=== PATIENT | female | born 1980 | race American Indian/Alaskan Native ===

== ENCOUNTER 2017-06-10 16:46 | Emergency (ER) | payer BC ==
[2017-06-10 18:27] LABS: Basophils % (Auto) 0.3 % (0.0-1.8); Eosinophils # (Auto) 0.6 K/mm3 (0.0-0.4); Hematocrit 41.7 % (30.3-42.9); Hemoglobin 13.7 gm/dl (10.1-14.3); Lymphocytes # (Auto) 2.9 K/mm3 (1.2-5.4); Lymphocytes % (Auto) 25.6 % (13.4-35.0); Mean Corpuscular HGB Conc 33 % (30-34); Mean Corpuscular Hemoglobin 29 pg (28-32); Mean Corpuscular Volume 88 fl (79-97); Monocytes # (Auto) 0.7 K/mm3 (0.0-0.8); Platelet Count 231 K/mm3 (140-440); Red Blood Count 4.74 M/mm3 (3.65-5.03); Red Cell Distribution Width 12.5 % (13.2-15.2)
[2017-06-10 18:42] LABS: BUN/Creatinine Ratio 8; Blood Urea Nitrogen 4 mg/dL (7-17)
[2017-06-10 18:43] LABS: Alanine Aminotransferase 59 units/L (7-56); Albumin 4.2 g/dL (3.9-5); Hemolysis Index 4
[2017-06-10] MEDS ORDERED: TYLENOL #3 PO ONE (20:31)
[2017-06-10] MEDS ORDERED: DUONEB *Not for PRN Use IH ONE (20:31)
--- NOTE | 2017-06-10 20:52 | Emergency Department Report ---
- General Chief Complaint: Upper Respiratory Infection Stated Complaint: BURTON/RIB PAIN Time Seen by Provider: 06/10/17 20:23 Source: patient Mode of arrival: Ambulatory Limitations: No Limitations - History of Present Illness Initial Comments: 36-year-old -[place] female comes in today for having 3 days of flulike symptoms. Patient reports that she is having difficulty bringing up the phlegm. She admits to decreased appetite Raynaud's eyes running sneezing wheezing she denies any sore throat or ear pain. She said on she vomited 1 and had chills. Patient reports she has a past medical history of asthma and has been using her inhaler. MD Complaint: cough, rhinorrhea, nasal congestion -: days(s) (3) Severity: moderate Severity scale (0 -10): 8 Consistency: constant Improves With: nothing Worsens With: activity, deep breaths Context: sick contacts Associated Symptoms: rhinorrhea, nasal congestion, cough, shortness of breath, vomiting ( time 1 on ). denies: sore throat Treatments Prior to Arrival: none - Related Data Previous Rx's Medication Instructions Recorded Last Taken Type Azithromycin [Zithromax] 500 mg PO QDAY #3 tablet 09/04/13 Unknown Rx Butalb/Acetamin/Caff 50-325-40 1 each PO Q4H PRN #20 tablet 07/12/14 Unknown Rx [Fioricet] Ibuprofen [Motrin 800 MG tab] 800 mg PO TID PRN #30 tablet 07/12/14 Unknown Rx Ondansetron [Zofran Odt] 4 mg PO Q6H PRN #20 tab.rapdis 07/12/14 Unknown Rx Cetirizine HCl [ZyrTEC] 10 mg PO QDAY #30 capsule 06/10/17 Unknown Rx Prednisone [predniSONE 10 mg 10 mg PO .TAPER #1 tab.ds.pk 06/10/17 Unknown Rx (6-Day Pack, 21 Tabs)] Allergies Allergy/AdvReac Type Severity Reaction Status Date / Time No Known Allergies Allergy Unverified 09/04/13 08:35 ED Review of Systems ROS: Stated complaint: BURTON/RIB PAIN Other details as noted in HPI Constitutional: denies: chills, fever Eyes: denies: eye pain, eye discharge, vision change ENT: congestion Respiratory: cough, shortness of breath, wheezing Cardiovascular: dyspnea on exertion Endocrine: no symptoms reported Gastrointestinal: denies: abdominal pain, nausea, diarrhea Genitourinary: denies: urgency, dysuria, discharge Musculoskeletal: denies: back pain, joint swelling, arthralgia Skin: denies: rash, lesions Neurological: denies: headache, weakness, paresthesias Psychiatric: denies: anxiety, depression Hematological/Lymphatic: denies: easy bleeding, easy bruising ED Past Medical Hx - Past Medical History Hx Asthma: Yes - Surgical History Additional Surgical History: tubal ligation - Social History Smoking Status: Never Smoker Substance Use Type: None - Medications Home Medications: Home Medications Medication Instructions Recorded Confirmed Last Taken Type Azithromycin [Zithromax] 500 mg PO QDAY #3 tablet 09/04/13 Unknown Rx Butalb/Acetamin/Caff 50-325-40 1 each PO Q4H PRN #20 tablet 07/12/14 Unknown Rx [Fioricet] Ibuprofen [Motrin 800 MG tab] 800 mg PO TID PRN #30 tablet 07/12/14 Unknown Rx Ondansetron [Zofran Odt] 4 mg PO Q6H PRN #20 tab.rapdis 07/12/14 Unknown Rx Cetirizine HCl [ZyrTEC] 10 mg PO QDAY #30 capsule 06/10/17 Unknown Rx Prednisone [predniSONE 10 mg 10 mg PO .TAPER #1 tab.ds.pk 06/10/17 Unknown Rx (6-Day Pack, 21 Tabs)] ED Physical Exam - General Limitations: No Limitations General appearance: alert, in no apparent distress - Head Head exam: Present: atraumatic, normocephalic - Eye Eye exam: Present: normal appearance - ENT ENT exam: Present: mucous membranes moist - Neck Neck exam: Present: normal inspection - Respiratory Respiratory exam: Present: wheezes, prolonged expiratory - Cardiovascular Cardiovascular Exam: Present: normal rhythm, tachycardia. Absent: systolic murmur, diastolic murmur, rubs, gallop - GI/Abdominal GI/Abdominal exam: Present: soft, normal bowel sounds - Extremities Exam Extremities exam: Present: normal inspection - Back Exam Back exam: Present: normal inspection - Neurological Exam Neurological exam: Present: alert, oriented X3 - Psychiatric Psychiatric exam: Present: normal affect, normal mood - Skin Skin exam: Present: warm, dry, intact, normal color. Absent: rash ED Course Vital Signs 06/10/17 17:18 Temperature 98.8 F Pulse Rate 112 H Respiratory 22 Rate Blood Pressure 148/94 Blood Pressure 148/94 [Right] O2 Sat by Pulse 97 Oximetry ED Medical Decision Making - Lab Data Result diagrams: 06/10/17 18:03 06/10/17 18:03 - Radiology Data Radiology results: report reviewed, image reviewed Chest x-ray no cardiopulmonary abnormalities - Medical Decision Making Patient has been evaluated by this provider fast track. Orders have been placed for DuoNeb and Solu-Medrol 125 mg IM, Tylenol 3. Chest x-rays in order waiting for results to be read. Critical care attestation.: If time is entered above; I have spent that time in minutes in the direct care of this critically ill patient, excluding procedure time. ED Disposition Clinical Impression: Asthma Qualifiers: Asthma severity: unspecified severity Asthma persistence: unspecified Asthma complication type: with acute exacerbation Qualified Code(s): J45.901 - Unspecified asthma with (acute) exacerbation Disposition: DC-01 TO HOME OR SELFCARE Is pt being admited?: No Does the pt Need Aspirin: No Condition: Stable Instructions: Asthma (ED) Additional Instructions: Please take medications as prescribed. Usual inhaler as needed. Follow-up with primary care provider if symptoms persist or gets worse. Prescriptions: Cetirizine HCl [ZyrTEC] 10 mg PO QDAY #30 capsule Prednisone [predniSONE 10 mg (6-Day Pack, 21 Tabs)] 10 mg PO .TAPER #1 tab.ds.pk Referrals: JAYME SULLIVAN MD [Staff Physician] - 3-5 Days Forms: Work/School Release Form(ED)
--- NOTE | 2017-06-10 22:05 | XRay Report ---
FINAL REPORT PROCEDURE: XR CHEST 1V AP TECHNIQUE: Chest radiograph anteroposterior view. CPT 77423 HISTORY: Pneumonia COMPARISON: Prior chest x-ray 06/28/2015 FINDINGS: Heart: Normal. Mediastinum/Vessels: Normal. Lungs/Pleural space: Clear. Patient has taken a deeper breath compared to the prior study.. Bony thorax: No acute osseous abnormality. Life support devices: None. IMPRESSION: No acute cardiopulmonary abnormality.
[2017-06-10 22:42] VITALS: BP 142/90
== END 2017-06-10 22:42 | disposition home or self-care (01) ==
LOC: ED 16:46
DX: J45.909 Unspecified asthma, uncomplicated (principal)
CPT/HCPCS: 36415; 71045; 80053; 85025; 96372; 99284; J2930

== ENCOUNTER 2018-06-12 22:00 | Inpatient (IN) | payer BC ==
[2018-06-12] MEDS ORDERED: PROVENTIL IH ONE (22:33)
[2018-06-12] MEDS ORDERED: DUONEB *Not for PRN Use IH ONE (22:33)
[2018-06-12] MEDS ORDERED: NACL 0.9% 500 ML 500 ML IV ONE (23:01)
[2018-06-12 23:31] LABS: Basophils # (Auto) 0.2 K/mm3 (0.0-0.1); Basophils % (Auto) 1.5 % (0.0-1.8); Eosinophils # (Auto) 0.1 K/mm3 (0.0-0.4); Eosinophils % (Auto) 0.7 % (0.0-4.3); Hematocrit 37.2 % (30.3-42.9); Hemoglobin 12.8 gm/dl (10.1-14.3); Lymphocytes % (Auto) 14.4 % (13.4-35.0); Mean Corpuscular HGB Conc 34 % (30-34); Mean Corpuscular Volume 87 fl (79-97); Monocytes # (Auto) 0.9 K/mm3 (0.0-0.8); Monocytes % (Auto) 6.2 % (0.0-7.3); Platelet Count 267 K/mm3 (140-440); Red Blood Count 4.29 M/mm3 (3.65-5.03); Red Cell Distribution Width 12.7 % (13.2-15.2)
[2018-06-12 23:42] LABS: INR 0.98 (0.87-1.13)
--- NOTE | 2018-06-12 23:52 | XRay Report ---
PROCEDURE: XR CHEST 1V AP TECHNIQUE: Chest radiograph single view. HISTORY: possible Sepsis COMPARISONS: 06/10/2017 . FINDINGS: Suboptimal inspiration Heart: Normal. Mediastinum/Vessels: Normal. Lungs/Pleural space: Evaluation is limited due to suboptimal inspiration. There are no obvious infil trates or mass lesions. Pleural spaces are clear.. Bony thorax: No acute osseous abnormality. Life support devices: None. IMPRESSION: No obvious acute pulmonary process. A two-view chest study is recommended whenever the p atient's condition permits. This document is electronically signed by Andres Carrasco MD., June 12 2018 11:51:06 PM ET
[2018-06-12 23:53] LABS: Alanine Aminotransferase 40 units/L (7-56); Albumin 4.2 g/dL (3.9-5); BUN/Creatinine Ratio 8; Blood Urea Nitrogen 5 mg/dL (7-17); Calcium 9.3 mg/dL (8.4-10.2); Hemolysis Index 5
[2018-06-13] MEDS ORDERED: SOLU-Medrol IV ONE (00:04)
[2018-06-13] MEDS ORDERED: ROCEPHIN/NS 1 GM/50 ML 1 GM/50 ML BAG IV ONE (00:04)
[2018-06-13] MEDS ORDERED: NACL 0.9% 1000 ML 1,000 ML IV ONE (00:04)
[2018-06-13] MEDS ORDERED: ATROVENT IH ONE (00:04)
[2018-06-13] MEDS ORDERED: TYLENOL PO STA (00:04)
[2018-06-13] MEDS ORDERED: NACL 0.9% 1000 ML 2,000 ML IV ONE (00:04)
[2018-06-13] MEDS ORDERED: PROVENTIL IH ONE (00:04)
[2018-06-13] MEDS ORDERED: ZITHROMAX PO ONE (00:05)
[2018-06-13] MEDS ORDERED: MAGNESIUM SULFATE 2GM/50ML 2 GM/50 ML BAG IV ONE ×3 (00:05→04:04)
[2018-06-13] MEDS ORDERED: TORADOL IV ONE (00:06)
--- NOTE | 2018-06-13 00:07 | Emergency Department Report ---
ED General Adult HPI - General Chief complaint: Dyspnea/Respdistress Stated complaint: FEVER AND CHILLS ASTHMA ATTACK Time Seen by Provider: 06/12/18 23:56 Source: patient, RN notes reviewed Mode of arrival: Stretcher Limitations: Physical Limitation - History of Present Illness Initial comments: Primary care Dr.: Dr. Apollo Jeronimo This is a 37-year-old female. The patient is not known to this provider previously. The patient reports a past medical history of asthma. I reports no lifetime intubations or hospitalizations. Presents to the emergency room with 3-4 days of body aches, fevers, cough, wheezing, shortness of breath. Did not receive influenza vaccination this year. Symptoms constant, worse with physical exertion, palpation, decreased with rest. Denies urinary symptoms. -: Gradual, days(s) Location: mouth, back, left, right, upper extremity, lower extremity Radiation: non-radiation Severity scale (0 -10): 9 Quality: aching Consistency: other Improves with: other Worsens with: other Associated Symptoms: cough, diaphoresis, fever/chills, loss of appetite, malaise, shortness of breath, weakness. denies: confusion, chest pain, headaches, nausea/vomiting, rash, seizure, syncope - Related Data Previous Rx's Medication Instructions Recorded Last Taken Type Azithromycin [Zithromax] 500 mg PO QDAY #3 tablet 09/04/13 Unknown Rx Butalb/Acetamin/Caff 50-325-40 1 each PO Q4H PRN #20 tablet 07/12/14 Unknown Rx [Fioricet] Ibuprofen [Motrin 800 MG tab] 800 mg PO TID PRN #30 tablet 07/12/14 Unknown Rx Ondansetron [Zofran Odt] 4 mg PO Q6H PRN #20 tab.rapdis 07/12/14 Unknown Rx Cetirizine HCl [ZyrTEC] 10 mg PO QDAY #30 capsule 06/10/17 Unknown Rx Prednisone [predniSONE 10 mg 10 mg PO .TAPER #1 tab.ds.pk 06/10/17 Unknown Rx (6-Day Pack, 21 Tabs)] Allergies Allergy/AdvReac Type Severity Reaction Status Date / Time No Known Allergies Allergy Unverified 09/04/13 08:35 ED Review of Systems ROS: Stated complaint: FEVER AND CHILLS ASTHMA ATTACK Other details as noted in HPI Constitutional: fever, malaise, weakness Eyes: denies: vision change Respiratory: cough, shortness of breath, wheezing Cardiovascular: denies: chest pain, palpitations Gastrointestinal: denies: vomiting Musculoskeletal: back pain, arthralgia, myalgia Skin: denies: lesions Neurological: weakness Psychiatric: anxiety ED Past Medical Hx - Past Medical History Previous Medical History?: Yes Hx Asthma: Yes - Surgical History Past Surgical History?: Yes Additional Surgical History: tubal ligation - Social History Smoking Status: Current Every Day Smoker Substance Use Type: Alcohol - Medications Home Medications: Home Medications Medication Instructions Recorded Confirmed Last Taken Type Azithromycin [Zithromax] 500 mg PO QDAY #3 tablet 09/04/13 Unknown Rx Butalb/Acetamin/Caff 50-325-40 1 each PO Q4H PRN #20 tablet 07/12/14 Unknown Rx [Fioricet] Ibuprofen [Motrin 800 MG tab] 800 mg PO TID PRN #30 tablet 07/12/14 Unknown Rx Ondansetron [Zofran Odt] 4 mg PO Q6H PRN #20 tab.rapdis 07/12/14 Unknown Rx Cetirizine HCl [ZyrTEC] 10 mg PO QDAY #30 capsule 06/10/17 Unknown Rx Prednisone [predniSONE 10 mg 10 mg PO .TAPER #1 tab.ds.pk 06/10/17 Unknown Rx (6-Day Pack, 21 Tabs)] ED Physical Exam - General Limitations: No Limitations General appearance: alert, in distress - Head Head exam: Present: atraumatic, normocephalic - Eye Eye exam: Present: normal appearance, EOMI. Absent: nystagmus - ENT ENT exam: Present: normal exam, normal orophraynx, normal external ear exam - Neck Neck exam: Present: normal inspection, full ROM. Absent: tenderness, meningismus - Respiratory Respiratory exam: Present: respiratory distress, wheezes, rhonchi - Cardiovascular Cardiovascular Exam: Present: normal rhythm, tachycardia, normal heart sounds. Absent: systolic murmur, diastolic murmur, rubs, gallop - GI/Abdominal GI/Abdominal exam: Present: soft. Absent: distended, tenderness, guarding, rebound, rigid, pulsatile mass - Extremities Exam Extremities exam: Present: normal inspection, full ROM, other (2+ pulses noted in the bilateral upper, lower extremities. Compartments soft. No long bony tenderness. The pelvis is stable.). Absent: pedal edema, joint swelling, calf tenderness - Back Exam Back exam: Present: normal inspection, full ROM, paraspinal tenderness. Absent: tenderness, CVA tenderness (R), CVA tenderness (L) - Neurological Exam Neurological exam: Present: alert, oriented X3, other (Extraocular movements intact. Tongue midline. No facial droop. Facial sensation intact to light touch in the V1, V2, V3 distribution bilaterally. 5 and 5 strength in 4 extremities.. Sensation is intact to light touch in 4 extremities.). Absent: motor sensory deficit - Psychiatric Psychiatric exam: Present: anxious - Skin Skin exam: Present: warm, dry, intact, normal color. Absent: rash ED Course Vital Signs 06/12/18 06/13/18 22:59 00:30 Temperature 103 F H Pulse Rate 139 H Pulse Rate [ 120 H Anterior Bilateral Throughout] Respiratory 30 H Rate Respiratory 14 Rate [Anterior Bilateral Throughout] Blood Pressure 113/86 O2 Sat by Pulse 93 Oximetry ED Medical Decision Making - Lab Data Result diagrams: 06/12/18 23:14 06/12/18 23:14 Vital Signs 06/12/18 06/13/18 22:59 00:30 Temperature 103 F H Pulse Rate 139 H Pulse Rate [ 120 H Anterior Bilateral Throughout] Respiratory 30 H Rate Respiratory 14 Rate [Anterior Bilateral Throughout] Blood Pressure 113/86 O2 Sat by Pulse 93 Oximetry Lab Results 06/12/18 06/12/18 06/12/18 Range/Units 23:14 23:14 23:14 WBC 14.0 H (4.5-11.0) K/mm3 RBC 4.29 (3.65-5.03) M/mm3 Hgb 12.8 (10.1-14.3) gm/dl Hct 37.2 (30.3-42.9) % MCV 87 (79-97) fl MCH 30 (28-32) pg MCHC 34 (30-34) % RDW 12.7 L (13.2-15.2) % Plt Count 267 (140-440) K/mm3 Lymph % (Auto) 14.4 (13.4-35.0) % Dillon % (Auto) 6.2 (0.0-7.3) % Eos % (Auto) 0.7 (0.0-4.3) % Baso % (Auto) 1.5 (0.0-1.8) % Lymph # 2.0 (1.2-5.4) K/mm3 Dillon # 0.9 H (0.0-0.8) K/mm3 Eos # 0.1 (0.0-0.4) K/mm3 Baso # 0.2 H (0.0-0.1) K/mm3 Seg Neutrophils % 77.2 H (40.0-70.0) % Seg Neutrophils # 10.8 H (1.8-7.7) K/mm3 PT 13.6 (12.2-14.9) Sec. INR 0.98 (0.87-1.13) VBG pH (7.320-7.420) Sodium 136 L (137-145) mmol/L Potassium 3.3 L (3.6-5.0) mmol/L Chloride 96.6 L (98-107) mmol/L Carbon Dioxide 24 (22-30) mmol/L Anion Gap 19 mmol/L BUN 5 L (7-17) mg/dL Creatinine 0.6 L (0.7-1.2) mg/dL Estimated GFR > 60 ml/min BUN/Creatinine Ratio 8 % Glucose 220 H (65-100) mg/dL Lactic Acid (0.7-2.0) mmol/L Calcium 9.3 (8.4-10.2) mg/dL Magnesium (1.7-2.3) mg/dL Total Bilirubin 0.40 (0.1-1.2) mg/dL AST 21 (5-40) units/L ALT 40 (7-56) units/L Alkaline Phosphatase 67 (35-129) units/L Total Protein 7.7 (6.3-8.2) g/dL Albumin 4.2 (3.9-5) g/dL Albumin/Globulin Ratio 1.2 % Urine Color (Yellow) Urine Turbidity (Clear) Urine pH (5.0-7.0) Ur Specific [place] (1.003-1.030) Urine Protein (Negative) mg/dL Urine Glucose (UA) (Negative) mg/dL Urine Ketones (Negative) mg/dL Urine Blood (Negative) Urine Nitrite (Negative) Urine Bilirubin (Negative) Urine Urobilinogen (<2.0) mg/dL Ur Leukocyte Esterase (Negative) Urine WBC (Auto) (0.0-6.0) /HPF Urine RBC (Auto) (0.0-6.0) /HPF U Epithel Cells (Auto) (0-13.0) /HPF Urine Bacteria (Auto) (Negative) /HPF Urine Mucus /HPF 06/12/18 06/12/18 06/12/18 Range/Units 23:14 23:14 23:42 WBC (4.5-11.0) K/mm3 RBC (3.65-5.03) M/mm3 Hgb (10.1-14.3) gm/dl Hct (30.3-42.9) % MCV (79-97) fl MCH (28-32) pg MCHC (30-34) % RDW (13.2-15.2) % Plt Count (140-440) K/mm3 Lymph % (Auto) (13.4-35.0) % Dillon % (Auto) (0.0-7.3) % Eos % (Auto) (0.0-4.3) % Baso % (Auto) (0.0-1.8) % Lymph # (1.2-5.4) K/mm3 Dillon # (0.0-0.8) K/mm3 Eos # (0.0-0.4) K/mm3 Baso # (0.0-0.1) K/mm3 Seg Neutrophils % (40.0-70.0) % Seg Neutrophils # (1.8-7.7) K/mm3 PT (12.2-14.9) Sec. INR (0.87-1.13) VBG pH 7.377 (7.320-7.420) Sodium (137-145) mmol/L Potassium (3.6-5.0) mmol/L Chloride (98-107) mmol/L Carbon Dioxide (22-30) mmol/L Anion Gap mmol/L BUN (7-17) mg/dL Creatinine (0.7-1.2) mg/dL Estimated GFR ml/min BUN/Creatinine Ratio % Glucose (65-100) mg/dL Lactic Acid 3.10 H* (0.7-2.0) mmol/L Calcium (8.4-10.2) mg/dL Magnesium (1.7-2.3) mg/dL Total Bilirubin (0.1-1.2) mg/dL AST (5-40) units/L ALT (7-56) units/L Alkaline Phosphatase (35-129) units/L Total Protein (6.3-8.2) g/dL Albumin (3.9-5) g/dL Albumin/Globulin Ratio % Urine Color Yellow (Yellow) Urine Turbidity Clear (Clear) Urine pH 5.0 (5.0-7.0) Ur Specific [place] 1.016 (1.003-1.030) Urine Protein <15 mg/dl (Negative) mg/dL Urine Glucose (UA) 50 (Negative) mg/dL Urine Ketones Tr (Negative) mg/dL Urine Blood Sm (Negative) Urine Nitrite Neg (Negative) Urine Bilirubin Neg (Negative) Urine Urobilinogen 2.0 (<2.0) mg/dL Ur Leukocyte Esterase Neg (Negative) Urine WBC (Auto) < 1.0 (0.0-6.0) /HPF Urine RBC (Auto) 4.0 (0.0-6.0) /HPF U Epithel Cells (Auto) 1.0 (0-13.0) /HPF Urine Bacteria (Auto) 2+ (Negative) /HPF Urine Mucus Few /HPF 06/13/18 Range/Units 00:20 WBC (4.5-11.0) K/mm3 RBC (3.65-5.03) M/mm3 Hgb (10.1-14.3) gm/dl Hct (30.3-42.9) % MCV (79-97) fl MCH (28-32) pg MCHC (30-34) % RDW (13.2-15.2) % Plt Count (140-440) K/mm3 Lymph % (Auto) (13.4-35.0) % Dillon % (Auto) (0.0-7.3) % Eos % (Auto) (0.0-4.3) % Baso % (Auto) (0.0-1.8) % Lymph # (1.2-5.4) K/mm3 Dillon # (0.0-0.8) K/mm3 Eos # (0.0-0.4) K/mm3 Baso # (0.0-0.1) K/mm3 Seg Neutrophils % (40.0-70.0) % Seg Neutrophils # (1.8-7.7) K/mm3 PT (12.2-14.9) Sec. INR (0.87-1.13) VBG pH (7.320-7.420) Sodium (137-145) mmol/L Potassium (3.6-5.0) mmol/L Chloride (98-107) mmol/L Carbon Dioxide (22-30) mmol/L Anion Gap mmol/L BUN (7-17) mg/dL Creatinine (0.7-1.2) mg/dL Estimated GFR ml/min BUN/Creatinine Ratio % Glucose (65-100) mg/dL Lactic Acid (0.7-2.0) mmol/L Calcium (8.4-10.2) mg/dL Magnesium 1.50 L (1.7-2.3) mg/dL Total Bilirubin (0.1-1.2) mg/dL AST (5-40) units/L ALT (7-56) units/L Alkaline Phosphatase (35-129) units/L Total Protein (6.3-8.2) g/dL Albumin (3.9-5) g/dL Albumin/Globulin Ratio % Urine Color (Yellow) Urine Turbidity (Clear) Urine pH (5.0-7.0) Ur Specific [place] (1.003-1.030) Urine Protein (Negative) mg/dL Urine Glucose (UA) (Negative) mg/dL Urine Ketones (Negative) mg/dL Urine Blood (Negative) Urine Nitrite (Negative) Urine Bilirubin (Negative) Urine Urobilinogen (<2.0) mg/dL Ur Leukocyte Esterase (Negative) Urine WBC (Auto) (0.0-6.0) /HPF Urine RBC (Auto) (0.0-6.0) /HPF U Epithel Cells (Auto) (0-13.0) /HPF Urine Bacteria (Auto) (Negative) /HPF Urine Mucus /HPF - Radiology Data Radiology results: report reviewed, image reviewed X-ray of the chest appears to be unremarkable for acute disease - Medical Decision Making Differential diagnosis, including but not limited to: Status asthmaticus, viral syndrome, viremia, bacteremia, influenza, pneumonia Assessment and plan: 37-year-old female with fever, tachycardia, hypoxia, wheezing, lactic acidosis and leukocytosis. We will treated the patient empirically for asthma exacerbation, replete her hypokalemia, hypomagnesemia, and give her empiric antibiotic and antiviral therapy. Recommended admission to the hospital for asthma exacerbation, electrolyte derangement, and systemic inflammatory response syndrome. Patient verbalized understanding, and is amenable to hospitalization at this time. Saturating 95% on albuterol therapy at this time, case is presented to the Hospital physician, Dr. Olsen, who has accepted the patient to the medical service for the aforementioned. Critical Care Time: Yes Critical care time in (mins) excluding proc time.: 35 Critical care attestation.: If time is entered above; I have spent that time in minutes in the direct care of this critically ill patient, excluding procedure time. ED Disposition Clinical Impression: Asthma exacerbation, Systemic inflammatory response syndrome (SIRS), Hypomagnesemia, Hypokalemia Disposition: OP ADMIT IP TO THIS HOSP Is pt being admited?: Yes Does the pt Need Aspirin: No Condition: Good
[2018-06-13 00:15] LABS: Bacteria,Urine 2+ /HPF (Negative); Bilirubin,Urine NEG (Negative); Blood,Urine SM (Negative); Color,Urine Yellow (Yellow); Mucus,Urine FEW /HPF; Protein,Urine <15 mg/dL mg/dL (Negative); WBC,Urine < 1.0 /HPF (0.0-6.0)
[2018-06-13] MEDS ORDERED: TAMIFLU PO ONE (01:11)
[2018-06-13] MEDS ORDERED: IBUPROFEN PO PRN (01:53)
[2018-06-13] MEDS ORDERED: SODIUM CHLORIDE FLUSH SYRINGE 10 ML IV PRN (01:53)
[2018-06-13] MEDS ORDERED: TYLENOL PO PRN (01:53)
[2018-06-13] MEDS ORDERED: NORCO 5/325 PO PRN (01:53)
[2018-06-13] MEDS ORDERED: ZOFRAN IV PRN (01:53)
[2018-06-13] MEDS ORDERED: D50W (25GM) Syringe IV PRN (01:58)
[2018-06-13] MEDS: KCL 10MEQ/100ML 10 MEQ/100 ML BAG IV SCH (02:41)
[2018-06-13 02:46] LABS: BUN/Creatinine Ratio 10; Blood Urea Nitrogen 5 mg/dL (7-17); Calcium 8.6 mg/dL (8.4-10.2); Hemolysis Index 3
--- NOTE | 2018-06-13 03:27 | History and Physical Report ---
History of Present Illness Date of examination: 06/13/18 Chief complaint: "I couldn't breathe" History of present illness: Patient is a 37-year-old -[place] female with history of asthma and diabetes mellitus type 2 we'll presented to the ED on account of 3 days history of shortness of breath. She has associated chills without fever, pleuritic chest pain, palpitation, cough productive of yellowish sputum, headaches, nausea without vomiting and lightheadedness. She denies diaphoresis, leg swelling, orthopnea, PND, sorethroat, runny nose or congestion. No headaches, syncope or loss of consciousness. No abdominal pain, constipation, diarrhea, dysuria or frequency. No reported history of ill contacts. Past History Past Medical History: diabetes, hypertension, other (asthma) Past Surgical History: , Other (tubal ligation) Social history: other (patient is an ex-cigarette smoker, she quit 3 years ago but smoked for 10 years. She denies alcohol or illicit drug use) Family history: no significant family history (reviewed and noncontributory) Medications and Allergies Allergies Allergy/AdvReac Type Severity Reaction Status Date / Time No Known Allergies Allergy Unverified 09/04/13 08:35 Home Medications Medication Instructions Recorded Confirmed Last Taken Type Azithromycin [Zithromax] 500 mg PO QDAY #3 tablet 09/04/13 Unknown Rx Butalb/Acetamin/Caff 50-325-40 1 each PO Q4H PRN #20 tablet 07/12/14 Unknown Rx [Fioricet] Ibuprofen [Motrin 800 MG tab] 800 mg PO TID PRN #30 tablet 07/12/14 Unknown Rx Ondansetron [Zofran Odt] 4 mg PO Q6H PRN #20 tab.rapdis 07/12/14 Unknown Rx Cetirizine HCl [ZyrTEC] 10 mg PO QDAY #30 capsule 06/10/17 Unknown Rx Prednisone [predniSONE 10 mg 10 mg PO .TAPER #1 tab.ds.pk 06/10/17 Unknown Rx (6-Day Pack, 21 Tabs)] Active Meds: Active Medications Acetaminophen (Tylenol) 650 mg PO Q4H PRN PRN Reason: Pain MILD(1-3)/Fever >100.5/MALIK Acetaminophen/Hydrocodone Bitart ([place] 5/325) 2 each PO Q6H PRN PRN Reason: Pain, Moderate (4-6) Dextrose (D50w (25gm) Syringe) 50 ml IV PRN PRN PRN Reason: Hypoglycemia Enoxaparin Sodium (Lovenox) 40 mg SUB-Q QDAY [facility] Famotidine (Pepcid) 20 mg PO BID [facility] Magnesium Sulfate (Magnesium Sulfate 2gm/50ml) 2 gm in 50 mls @ 25 mls/hr IV ONCE ONE Stop: 06/13/18 03:55 Piperacillin Sod/Tazobactam Sod (Zosyn/Ns 4.5gm/100ml) 4.5 gm in 100 mls @ 200 mls/hr IV Q8HR [facility]; Protocol Ibuprofen (Motrin) 600 mg PO Q6H PRN PRN Reason: Pain, Mild (1-3) Insulin Glargine (Lantus) 15 units SUB-Q DAILY [facility] Insulin Human Lispro (Humalog) 0 unit SUB-Q ACHS [facility]; Protocol Ipratropium [place] (Atrovent) 0.5 mg IH Q6HRT [facility] Levalbuterol HCl (Xopenex) 0.63 mg IH Q6HRT PRN PRN Reason: Shortness Of Breath Ondansetron HCl (Zofran) 4 mg IV Q8H PRN PRN Reason: Nausea And Vomiting Sodium Chloride (Sodium Chloride Flush Syringe 10 Ml) 10 ml IV BID [facility] Sodium Chloride (Sodium Chloride Flush Syringe 10 Ml) 10 ml IV PRN PRN PRN Reason: LINE FLUSH Review of Systems All systems: negative (except as documented in the HPI, all other systems were reviewed and negative) Exam - Constitutional Vitals: Temp Pulse Resp BP Pulse Ox 103 F H 118 H 14 113/86 93 06/12/18 22:59 06/13/18 01:40 06/13/18 01:40 06/12/18 22:59 06/12/18 22:59 General appearance: Present: no acute distress, obese - EENT Eyes: Present: PERRL, EOM intact ENT: hearing intact, clear oral mucosa - Neck Neck: Present: supple, normal ROM - Respiratory Respiratory effort: normal Respiratory: bilateral: CTA - Cardiovascular Rhythm: regular (with tachycardia) Heart Sounds: Present: S1 & S2. Absent: rub, click - Extremities Extremities: No edema Peripheral Pulses: within normal limits - Abdominal General gastrointestinal: Present: soft, non-tender, non-distended, normal bowel sounds Female genitourinary: Present: deferred - Integumentary Integumentary: Present: clear, warm, dry - Musculoskeletal Musculoskeletal: gait normal, strength equal bilaterally - Psychiatric Psychiatric: appropriate mood/affect, intact judgment & insight - Neurologic Neurologic: CNII-XII intact, moves all extremities Results - Labs CBC & Chem 7: 06/12/18 23:14 06/13/18 02:11 Labs: Laboratory Last Values WBC 14.0 K/mm3 (4.5-11.0) H 06/12/18 23:14 RBC 4.29 M/mm3 (3.65-5.03) 06/12/18 23:14 Hgb 12.8 gm/dl (10.1-14.3) 06/12/18 23:14 Hct 37.2 % (30.3-42.9) 06/12/18 23:14 MCV 87 fl (79-97) 06/12/18 23:14 MCH 30 pg (28-32) 06/12/18 23:14 MCHC 34 % (30-34) 06/12/18 23:14 RDW 12.7 % (13.2-15.2) L 06/12/18 23:14 Plt Count 267 K/mm3 (140-440) 06/12/18 23:14 Lymph % (Auto) 14.4 % (13.4-35.0) 06/12/18 23:14 [place] % (Auto) 6.2 % (0.0-7.3) 06/12/18 23:14 Eos % (Auto) 0.7 % (0.0-4.3) 06/12/18 23:14 Baso % (Auto) 1.5 % (0.0-1.8) 06/12/18 23:14 Lymph # 2.0 K/mm3 (1.2-5.4) 06/12/18 23:14 [place] # 0.9 K/mm3 (0.0-0.8) H 06/12/18 23:14 Eos # 0.1 K/mm3 (0.0-0.4) 06/12/18 23:14 Baso # 0.2 K/mm3 (0.0-0.1) H 06/12/18 23:14 Seg Neutrophils % 77.2 % (40.0-70.0) H 06/12/18 23:14 Seg Neutrophils # 10.8 K/mm3 (1.8-7.7) H 06/12/18 23:14 PT 13.6 Sec. (12.2-14.9) 06/12/18 23:14 INR 0.98 (0.87-1.13) 06/12/18 23:14 VBG pH 7.377 (7.320-7.420) 06/12/18 23:14 Sodium 134 mmol/L (137-145) L 06/13/18 02:11 Potassium 3.6 mmol/L (3.6-5.0) 06/13/18 02:11 Chloride 97.5 mmol/L (98-107) L 06/13/18 02:11 Carbon Dioxide 23 mmol/L (22-30) 06/13/18 02:11 Anion Gap 17 mmol/L 06/13/18 02:11 BUN 5 mg/dL (7-17) L 06/13/18 02:11 Creatinine 0.5 mg/dL (0.7-1.2) L 06/13/18 02:11 Estimated GFR > 60 ml/min 06/13/18 02:11 BUN/Creatinine Ratio 10 % 06/13/18 02:11 Glucose 276 mg/dL (65-100) H 06/13/18 02:11 Hemoglobin A1c 9.0 % (4-6) H 06/13/18 02:11 Lactic Acid 2.00 mmol/L (0.7-2.0) 06/13/18 02:11 Calcium 8.6 mg/dL (8.4-10.2) 06/13/18 02:11 Magnesium 1.50 mg/dL (1.7-2.3) L 06/13/18 00:20 Total Bilirubin 0.40 mg/dL (0.1-1.2) 06/12/18 23:14 AST 21 units/L (5-40) 06/12/18 23:14 ALT 40 units/L (7-56) 06/12/18 23:14 Alkaline Phosphatase 67 units/L (35-129) 06/12/18 23:14 Total Creatine Kinase 101 units/L (30-135) 06/13/18 00:20 Total Protein 7.7 g/dL (6.3-8.2) 06/12/18 23:14 Albumin 4.2 g/dL (3.9-5) 06/12/18 23:14 Albumin/Globulin Ratio 1.2 % 06/12/18 23:14 Urine Color Yellow (Yellow) 06/12/18 23:42 Urine Turbidity Clear (Clear) 06/12/18 23:42 Urine pH 5.0 (5.0-7.0) 06/12/18 23:42 Ur Specific [place] 1.016 (1.003-1.030) 06/12/18 23:42 Urine Protein <15 mg/dl mg/dL (Negative) 06/12/18 23:42 Urine Glucose (UA) 50 mg/dL (Negative) 06/12/18 23:42 Urine Ketones Tr mg/dL (Negative) 06/12/18 23:42 Urine Blood Sm (Negative) 06/12/18 23:42 Urine Nitrite Neg (Negative) 06/12/18 23:42 Urine Bilirubin Neg (Negative) 06/12/18 23:42 Urine Urobilinogen 2.0 mg/dL (<2.0) 06/12/18 23:42 Ur Leukocyte Esterase Neg (Negative) 06/12/18 23:42 Urine WBC (Auto) < 1.0 /HPF (0.0-6.0) 06/12/18 23:42 Urine RBC (Auto) 4.0 /HPF (0.0-6.0) 06/12/18 23:42 U Epithel Cells (Auto) 1.0 /HPF (0-13.0) 06/12/18 23:42 Urine Bacteria (Auto) 2+ /HPF (Negative) 06/12/18 23:42 Urine Mucus Few /HPF 06/12/18 23:42 Influenza A (Rapid) Negative (Negative) 06/13/18 00:06 Influenza B (Rapid) Negative (Negative) 06/13/18 00:06 Assessment and Plan Assessment and plan: Severe sepsis -Probably secondary to acute bronchitis/early onset pneumonia -On sepsis protocol -Urinalysis and flu test negative. -Blood and sputum cultures pending -ID consulted DM2 with hyperglycemia -On Lantus and SSI Hypokalemia/Hypomagnesemia -On repletion, will monitor levels History of asthma -No acute exacerbation -On nebulizer breathing treatments Hypertension -Blood pressure stable DVT prophylaxis with Lovenox Disposition: For discharge when medically stable Time spent: 40 minutes
[2018-06-13] MEDS ORDERED: ZITHROMAX ONE (03:53)
[2018-06-13] MEDS ORDERED: TORADOL ONE (03:54)
[2018-06-13] MEDS ORDERED: MAGNESIUM SULFATE 2GM/50ML 0 GM/0 ML BAG IV ONE (03:54)
[2018-06-13] MEDS ORDERED: SOLU-Medrol ONE (03:55)
[2018-06-13] MEDS ORDERED: VANCOMYCIN PHARMACY TO DOSE IV SCH (04:00)
[2018-06-13] MEDS ORDERED: VANCOMYCIN 1,750 MG in NACL 0.9% 500 ML 500 ML IV ONE (04:00)
[2018-06-13] MEDS: ATROVENT IH SCH ×4 (05:07→20:17)
[2018-06-13] MEDS: ZOSYN/NS 4.5GM/100ML 4.5 GM/100 ML VIAL IV SCH ×2 (07:32→18:02)
[2018-06-13] MEDS: XOPENEX IH PRN ×3 (08:06→20:17)
[2018-06-13] MEDS: HumaLOG SUB-Q SCH ×4 (08:42→22:19)
--- NOTE | 2018-06-13 11:32 | XRay Report ---
ROUTINE CHEST, TWO VIEWS: HISTORY: cough, shortness of breath, fever. Subtle peribronchial infiltrate is suspected in the left lower lobe which appears to be new since 06/28/15. The remainder of the lungs are clear. No pleural effusion or pneumothorax. Normal heart and mediastinal structures. IMPRESSION: Subtle left lower lobe infiltrate is suspected. Correlate for early pneumonia.
[2018-06-13] MEDS: LOVENOX SUB-Q SCH (11:54)
[2018-06-13] MEDS: LANTUS SUB-Q SCH (11:55)
[2018-06-13] MEDS: PEPCID PO SCH ×2 (11:55→22:19)
[2018-06-13] MEDS: SODIUM CHLORIDE FLUSH SYRINGE 10 ML IV SCH (12:43)
--- NOTE | 2018-06-13 14:32 | Consultation ---
History of Present Illness - Reason for Consult Consult date: 06/13/18 Sepsis, pneumonia Requesting physician: DASHAWN THOMAS - History of Present Illness The patient is a 37-year-old female with history of asthma and diabetes mellitus type 2 presented to the emergency room with complaints of worsening shortness of breath, cough with expectoration. Her symptoms began 2 weeks ago but worsened 3 days prior to admission and hence she came to the hospital. She also reports some subjective fevers with chills. She was self-medicating with Z-Perfecto that she got from a friend. Reports some nausea and vomiting prior to admission. Lives with her kids, no sick contacts. Not sexually active, but previously has been tested for HIV and was negative. Denies any active smoking, alcohol abuse or recreational drug use. She does not generally take the flushot. States she has taken Pneumonia vaccination before. Review of Systems: General: subjective fevers, chills no rigors HEENT: no new visual disturbance Respiratory: + for cough, sputum, shortness of breath Cardiovascular: No chest pain, syncope Gastrointestinal: No nausea, vomiting or diarrhea today Genitourinary: No dysuria or hematuria Musculoskeletal: No new or worsening neck pain or back pain Neurologic: No headaches, seizures Hematologic: No easy bruising or bleeding Endocrine: No night sweats or acute weight loss Skin: negative for rash, jaundice Psychiatric: No suicidal or homicidal ideation Past History Past Medical History: diabetes, hypertension, other (asthma) Past Surgical History: , Other (tubal ligation) Social history: other (patient is an ex-cigarette smoker, she quit 3 years ago but smoked for 10 years. She denies alcohol or illicit drug use) Family history: no significant family history (reviewed and noncontributory) Medications and Allergies Allergies Allergy/AdvReac Type Severity Reaction Status Date / Time No Known Allergies Allergy Unverified 09/04/13 08:35 Home Medications Medication Instructions Recorded Confirmed Last Taken Type Azithromycin [Zithromax] 500 mg PO QDAY #3 tablet 09/04/13 Unknown Rx Butalb/Acetamin/Caff 50-325-40 1 each PO Q4H PRN #20 tablet 07/12/14 Unknown Rx [Fioricet] Ibuprofen [Motrin 800 MG tab] 800 mg PO TID PRN #30 tablet 07/12/14 Unknown Rx Ondansetron [Zofran Odt] 4 mg PO Q6H PRN #20 tab.rapdis 07/12/14 Unknown Rx Cetirizine HCl [ZyrTEC] 10 mg PO QDAY #30 capsule 06/10/17 Unknown Rx Prednisone [predniSONE 10 mg 10 mg PO .TAPER #1 tab.ds.pk 06/10/17 Unknown Rx (6-Day Pack, 21 Tabs)] Active Meds: Active Medications Acetaminophen (Tylenol) 650 mg PO Q4H PRN PRN Reason: Pain MILD(1-3)/Fever >100.5/MALIK Acetaminophen/Hydrocodone Bitart ([place] 5/325) 2 each PO Q6H PRN PRN Reason: Pain, Moderate (4-6) Dextrose (D50w (25gm) Syringe) 50 ml IV PRN PRN PRN Reason: Hypoglycemia Enoxaparin Sodium (Lovenox) 40 mg SUB-Q QDAY [facility] Last Admin: 06/13/18 11:54 Dose: 40 mg Documented by: Famotidine (Pepcid) 20 mg PO BID [facility] Last Admin: 06/13/18 11:55 Dose: 20 mg Documented by: Piperacillin Sod/Tazobactam Sod (Zosyn/Ns 4.5gm/100ml) 4.5 gm in 100 mls @ 200 mls/hr IV Q8HR [facility]; Protocol Last Admin: 06/13/18 07:32 Dose: 200 mls/hr Documented by: Vancomycin HCl 1,500 mg/ (Sodium Chloride) 530 mls @ 333.333 mls/hr IV Q12H [facility] Ibuprofen (Motrin) 600 mg PO Q6H PRN PRN Reason: Pain, Mild (1-3) Insulin Glargine (Lantus) 15 units SUB-Q DAILY [facility] Last Admin: 06/13/18 11:55 Dose: 15 units Documented by: Insulin Human Lispro (Humalog) 0 unit SUB-Q ACHS [facility]; Protocol Last Admin: 06/13/18 12:32 Dose: 8 unit Documented by: Ipratropium [place] (Atrovent) 0.5 mg IH Q6HRT [facility] Last Admin: 06/13/18 08:06 Dose: 0.5 mg Documented by: Levalbuterol HCl (Xopenex) 0.63 mg IH Q6HRT PRN PRN Reason: Shortness Of Breath Last Admin: 06/13/18 08:06 Dose: 0.63 mg Documented by: Ondansetron HCl (Zofran) 4 mg IV Q8H PRN PRN Reason: Nausea And Vomiting Sodium Chloride (Sodium Chloride Flush Syringe 10 Ml) 10 ml IV BID [facility] Last Admin: 06/13/18 12:43 Dose: 10 ml Documented by: Sodium Chloride (Sodium Chloride Flush Syringe 10 Ml) 10 ml IV PRN PRN PRN Reason: LINE FLUSH Physical Examination - Physical Exam Narrative exam: Physical Exam: Constitutional: Alert, cooperative. No acute distress Head, Ears, Nose: Normocephalic, atraumatic. External ears, nose normal Eyes: Conjunctivae/corneas clear. No icterus. No ptosis. Neck: Supple, no meningeal signs Oral: dentition fair, no thrush Cardiovascular: S1, S2 normal. Respiratory: Good air entry, clear to auscultation bilaterally, faint left sided basal crackles GI: Soft, non-tender; bowel sounds normal. No peritoneal signs Musculoskeletal: No pedal edema, no cyanosis. Skin: No rash or abscess Hem/Lymphatic: No palpable cervical or supraclavicular nodes. No lymphangitis Psych: Mood ok. Affect normal Neurological: Awake, alert, oriented. No gross abnormality - Constitutional Vitals: Vital Signs Temp Pulse Resp BP Pulse Ox 98.1 F 98 H 20 108/69 93 06/13/18 11:43 06/13/18 11:43 06/13/18 11:43 06/13/18 11:43 06/13/18 11:43 Temperature -Last 24 Hours Temperature 98.1 F Temperature 98.1 F Temperature 98.3 F Temperature 98.9 F Temperature 103 F Results - Labs CBC & Chem 7: 06/12/18 23:14 06/13/18 02:11 Labs: Abnormal lab results 06/12/18 06/12/18 06/12/18 Range/Units 23:14 23:14 23:14 WBC 14.0 H (4.5-11.0) K/mm3 RDW 12.7 L (13.2-15.2) % [place] # 0.9 H (0.0-0.8) K/mm3 Baso # 0.2 H (0.0-0.1) K/mm3 Seg Neutrophils % 77.2 H (40.0-70.0) % Seg Neutrophils # 10.8 H (1.8-7.7) K/mm3 Sodium 136 L (137-145) mmol/L Potassium 3.3 L (3.6-5.0) mmol/L Chloride 96.6 L (98-107) mmol/L BUN 5 L (7-17) mg/dL Creatinine 0.6 L (0.7-1.2) mg/dL Glucose 220 H (65-100) mg/dL POC Glucose (70-105) Hemoglobin A1c (4-6) % Lactic Acid 3.10 H* (0.7-2.0) mmol/L Magnesium (1.7-2.3) mg/dL 06/13/18 06/13/18 06/13/18 Range/Units 00:20 00:20 02:11 WBC (4.5-11.0) K/mm3 RDW (13.2-15.2) % [place] # (0.0-0.8) K/mm3 Baso # (0.0-0.1) K/mm3 Seg Neutrophils % (40.0-70.0) % Seg Neutrophils # (1.8-7.7) K/mm3 Sodium 134 L (137-145) mmol/L Potassium (3.6-5.0) mmol/L Chloride 97.5 L (98-107) mmol/L BUN 5 L (7-17) mg/dL Creatinine 0.5 L (0.7-1.2) mg/dL Glucose 276 H (65-100) mg/dL POC Glucose (70-105) Hemoglobin A1c (4-6) % Lactic Acid 2.80 H* (0.7-2.0) mmol/L Magnesium 1.50 L (1.7-2.3) mg/dL 06/13/18 06/13/18 06/13/18 Range/Units 02:11 03:22 05:24 WBC (4.5-11.0) K/mm3 RDW (13.2-15.2) % [place] # (0.0-0.8) K/mm3 Baso # (0.0-0.1) K/mm3 Seg Neutrophils % (40.0-70.0) % Seg Neutrophils # (1.8-7.7) K/mm3 Sodium (137-145) mmol/L Potassium (3.6-5.0) mmol/L Chloride (98-107) mmol/L BUN (7-17) mg/dL Creatinine (0.7-1.2) mg/dL Glucose (65-100) mg/dL POC Glucose (70-105) Hemoglobin A1c 9.0 H (4-6) % Lactic Acid 2.90 H* 3.20 H* (0.7-2.0) mmol/L Magnesium (1.7-2.3) mg/dL 06/13/18 06/13/18 06/13/18 Range/Units 06:50 09:01 11:44 WBC (4.5-11.0) K/mm3 RDW (13.2-15.2) % [place] # (0.0-0.8) K/mm3 Baso # (0.0-0.1) K/mm3 Seg Neutrophils % (40.0-70.0) % Seg Neutrophils # (1.8-7.7) K/mm3 Sodium (137-145) mmol/L Potassium (3.6-5.0) mmol/L Chloride (98-107) mmol/L BUN (7-17) mg/dL Creatinine (0.7-1.2) mg/dL Glucose (65-100) mg/dL POC Glucose 354 H 399 H (70-105) Hemoglobin A1c (4-6) % Lactic Acid 2.60 H* (0.7-2.0) mmol/L Magnesium (1.7-2.3) mg/dL - Imaging and Cardiology Chest x-ray: report reviewed, image reviewed (?subtle left sided pneumonia) Assessment and Plan Cultures: 06/12/2018 blood culture: In progress 06/13/2018 influenza rapid: Negative A/P: 37-year-old female with history of asthma and diabetes mellitus type 2 presented to the emergency room with complaints of worsening shortness of breath, cough with expectoration. Her symptoms began 2 weeks ago but worsened 3 days prior to admission. Admitted with: 1) Left-sided community-acquired pneumonia 2) Sepsis secondary to pneumonia 3) Diabetes mellitus type 2 uncontrolled 4) Hypertension Recs: Discontinued vancomycin and Zosyn Started IV ceftriaxone and azithromycin Flu PCR ordered sputum culture ordered MD Donavan [facility] C: [phone] O: [phone] F: [phone]
--- NOTE | 2018-06-13 16:12 | Event Note ---
Date: 06/13/18 Patient is 37 yo presents with shortness of breath. CXR possible pneumonia. I have seen and examined her. Continue current.
[2018-06-13] MEDS: ZITHROMAX PO SCH (16:23)
[2018-06-13] MEDS ORDERED: VANCOMYCIN 1,500 MG in NACL 0.9% 500 ML 500 ML IV SCH (18:00)
[2018-06-13] MEDS: ROCEPHIN/NS 2 GM/100 ML 2 GM/100 ML BAG IV SCH (18:11)
[2018-06-13] MEDS ORDERED: RESTORIL PO ONE ×2 (23:28→23:39)
[2018-06-14] MEDS: SODIUM CHLORIDE FLUSH SYRINGE 10 ML IV SCH ×3 (00:29→21:39)
[2018-06-14] MEDS: ATROVENT IH SCH ×3 (03:11→09:55)
[2018-06-14] MEDS: XOPENEX IH PRN ×2 (05:30→10:05)
[2018-06-14 05:46] LABS: Basophils # (Auto) 0.1 K/mm3 (0.0-0.1); Basophils % (Auto) 0.4 % (0.0-1.8); Eosinophils # (Auto) 0.1 K/mm3 (0.0-0.4); Eosinophils % (Auto) 0.9 % (0.0-4.3); Hematocrit 33.9 % (30.3-42.9); Hemoglobin 11.3 gm/dl (10.1-14.3); Lymphocytes # (Auto) 3.2 K/mm3 (1.2-5.4); Lymphocytes % (Auto) 24.1 % (13.4-35.0); Mean Corpuscular HGB Conc 33 % (30-34); Mean Corpuscular Volume 87 fl (79-97); Monocytes # (Auto) 0.8 K/mm3 (0.0-0.8); Monocytes % (Auto) 5.7 % (0.0-7.3); Platelet Count 254 K/mm3 (140-440); Red Cell Distribution Width 12.8 % (13.2-15.2)
[2018-06-14 06:02] LABS: BUN/Creatinine Ratio 12; Blood Urea Nitrogen 6 mg/dL (7-17); Calcium 8.3 mg/dL (8.4-10.2); Hemolysis Index 2
[2018-06-14] MEDS: HumaLOG SUB-Q SCH ×3 (08:43→18:57)
--- NOTE | 2018-06-14 09:26 | Progress Note ---
Assessment and Plan Assessment and plan: Sepsis due to pneumonia Now on Rocephin, Zithromax Blood cultures no growth Pneumonia LLL, community acquired Cont Azithromycin, Rocephin Diabetes mellitus type 2. Fingerstick glucose qac and HS Obesity. Counseled on diet and exercise Full code status History Interval history: Feels better Less shortness of breath Cough Hospitalist Physical - Physical exam Narrative exam: Gen: Not in acute distress, lying in bed, obese HEENT: Normocephalic, atraumatic Heart: S1 and S2 reg, no murmurs, rubs or gallop Lungs: Clear to auscultation bilaterally, no wheezing Abd: soft, non tender, non distended, normal BS Ext: No edema, no clubbing, no cyanosis Neuro: AAO x 3, no focal signs, moves all ext Psych:Normal mood - Constitutional Vitals: Temp Pulse Resp BP Pulse Ox 97.8 F 86 18 114/68 93 06/14/18 05:35 06/14/18 05:40 06/14/18 05:40 06/14/18 05:35 06/14/18 05:35 General appearance: Present: no acute distress, obese Results - Labs CBC & Chem 7: 06/14/18 05:28 06/14/18 05:28 Labs: Laboratory Last Values WBC 13.3 K/mm3 (4.5-11.0) H 06/14/18 05:28 RBC 3.90 M/mm3 (3.65-5.03) 06/14/18 05:28 Hgb 11.3 gm/dl (10.1-14.3) 06/14/18 05:28 Hct 33.9 % (30.3-42.9) 06/14/18 05:28 MCV 87 fl (79-97) 06/14/18 05:28 MCH 29 pg (28-32) 06/14/18 05:28 MCHC 33 % (30-34) 06/14/18 05:28 RDW 12.8 % (13.2-15.2) L 06/14/18 05:28 Plt Count 254 K/mm3 (140-440) 06/14/18 05:28 Lymph % (Auto) 24.1 % (13.4-35.0) 06/14/18 05:28 [place] % (Auto) 5.7 % (0.0-7.3) 06/14/18 05:28 Eos % (Auto) 0.9 % (0.0-4.3) 06/14/18 05:28 Baso % (Auto) 0.4 % (0.0-1.8) 06/14/18 05:28 Lymph # 3.2 K/mm3 (1.2-5.4) 06/14/18 05:28 [place] # 0.8 K/mm3 (0.0-0.8) 06/14/18 05:28 Eos # 0.1 K/mm3 (0.0-0.4) 06/14/18 05:28 Baso # 0.1 K/mm3 (0.0-0.1) 06/14/18 05:28 Seg Neutrophils % 68.9 % (40.0-70.0) 06/14/18 05:28 Seg Neutrophils # 9.1 K/mm3 (1.8-7.7) H 06/14/18 05:28 PT 13.6 Sec. (12.2-14.9) 06/12/18 23:14 INR 0.98 (0.87-1.13) 06/12/18 23:14 VBG pH 7.377 (7.320-7.420) 06/12/18 23:14 Sodium 139 mmol/L (137-145) 06/14/18 05:28 Potassium 3.9 mmol/L (3.6-5.0) 06/14/18 05:28 Chloride 104.6 mmol/L (98-107) 06/14/18 05:28 Carbon Dioxide 24 mmol/L (22-30) 06/14/18 05:28 Anion Gap 14 mmol/L 06/14/18 05:28 BUN 6 mg/dL (7-17) L 06/14/18 05:28 Creatinine 0.5 mg/dL (0.7-1.2) L 06/14/18 05:28 Estimated GFR > 60 ml/min 06/14/18 05:28 BUN/Creatinine Ratio 12 % 06/14/18 05:28 Glucose 205 mg/dL (65-100) H 06/14/18 05:28 POC Glucose 179 (70-105) H 06/14/18 08:24 Hemoglobin A1c 9.0 % (4-6) H 06/13/18 02:11 Lactic Acid 2.60 mmol/L (0.7-2.0) H* 06/13/18 06:50 Calcium 8.3 mg/dL (8.4-10.2) L 06/14/18 05:28 Magnesium 2.10 mg/dL (1.7-2.3) 06/14/18 05:28 Total Bilirubin 0.40 mg/dL (0.1-1.2) 06/12/18 23:14 AST 21 units/L (5-40) 06/12/18 23:14 ALT 40 units/L (7-56) 06/12/18 23:14 Alkaline Phosphatase 67 units/L (35-129) 06/12/18 23:14 Total Creatine Kinase 101 units/L (30-135) 06/13/18 00:20 Total Protein 7.7 g/dL (6.3-8.2) 06/12/18 23:14 Albumin 4.2 g/dL (3.9-5) 06/12/18 23:14 Albumin/Globulin Ratio 1.2 % 06/12/18 23:14 Urine Color Yellow (Yellow) 06/12/18 23:42 Urine Turbidity Clear (Clear) 06/12/18 23:42 Urine pH 5.0 (5.0-7.0) 06/12/18 23:42 Ur Specific [place] 1.016 (1.003-1.030) 06/12/18 23:42 Urine Protein <15 mg/dl mg/dL (Negative) 06/12/18 23:42 Urine Glucose (UA) 50 mg/dL (Negative) 06/12/18 23:42 Urine Ketones Tr mg/dL (Negative) 06/12/18 23:42 Urine Blood Sm (Negative) 06/12/18 23:42 Urine Nitrite Neg (Negative) 06/12/18 23:42 Urine Bilirubin Neg (Negative) 06/12/18 23:42 Urine Urobilinogen 2.0 mg/dL (<2.0) 06/12/18 23:42 Ur Leukocyte Esterase Neg (Negative) 06/12/18 23:42 Urine WBC (Auto) < 1.0 /HPF (0.0-6.0) 06/12/18 23:42 Urine RBC (Auto) 4.0 /HPF (0.0-6.0) 06/12/18 23:42 U Epithel Cells (Auto) 1.0 /HPF (0-13.0) 06/12/18 23:42 Urine Bacteria (Auto) 2+ /HPF (Negative) 06/12/18 23:42 Urine Mucus Few /HPF 06/12/18 23:42 Influenza A (Rapid) Negative (Negative) 06/13/18 00:06 Influenza B (Rapid) Negative (Negative) 06/13/18 00:06 Group A Strep Rapid (Negative) 06/13/18 00:06 Active Medications - Current Medications Current Medications: Generic Name Dose Route Start Last Admin Trade Name Freq PRN Reason Stop Dose Admin Acetaminophen 650 mg 06/13/18 01:53 Tylenol PO Q4H PRN Pain MILD(1-3)/Fever >100.5/MALIK Acetaminophen/Hydrocodone Bitart 2 each 06/13/18 01:53 [place] 5/325 PO Q6H PRN Pain, Moderate (4-6) Azithromycin 500 mg 06/13/18 15:00 06/13/18 16:23 Zithromax PO 06/16/18 10:01 500 mg QDAY [facility]YSSA Administration Dextrose 50 ml 06/13/18 01:58 D50w (25gm) Syringe IV PRN PRN Hypoglycemia Enoxaparin Sodium 40 mg 06/13/18 10:00 06/13/18 11:54 Lovenox SUB-Q 40 mg QDAY [facility] Administration Famotidine 20 mg 06/13/18 10:00 06/13/18 22:19 Pepcid PO 20 mg BID [facility] Administration Ceftriaxone Sodium 2 gm in 100 mls @ 200 mls/hr 06/13/18 15:00 06/13/18 18:11 Rocephin/Ns 2 Gm/100 Ml IV 200 mls/hr Q24HR [facility] Administration Protocol Ibuprofen 600 mg 06/13/18 01:53 Motrin PO Q6H PRN Pain, Mild (1-3) Insulin Glargine 15 units 06/13/18 10:00 06/13/18 11:55 Lantus SUB-Q 15 units DAILY [facility] Administration Insulin Human Lispro 0 unit 06/13/18 07:30 06/14/18 08:43 Humalog SUB-Q 2 unit ACHS ALLYSSA Administration Protocol Ipratropium Cypress 0.5 mg 06/13/18 04:00 06/14/18 05:30 Atrovent IH 0.5 mg Q6HRT ALLYSSA Administration Levalbuterol HCl 0.63 mg 06/13/18 03:22 06/14/18 05:30 Xopenex IH 0.63 mg Q6HRT PRN Administration Shortness Of Breath Ondansetron HCl 4 mg 06/13/18 01:53 Zofran IV Q8H PRN Nausea And Vomiting Sodium Chloride 10 ml 06/13/18 10:00 06/14/18 00:29 Sodium Chloride Flush Syringe 10 Ml IV 10 ml BID ALLYSSA Administration Sodium Chloride 10 ml 06/13/18 01:53 Sodium Chloride Flush Syringe 10 Ml IV PRN PRN LINE FLUSH
--- NOTE | 2018-06-14 09:57 | Progress Note ---
Assessment and Plan Cultures: 06/12/2018 blood culture: In progress 06/13/2018 influenza rapid: Negative 06/13/2018 Urine:negative 06/14/2018 Sputum: in progress 06/14/2018 Influenza PCR: negative A/P: 37-year-old female with history of asthma and diabetes mellitus type 2 presented to the emergency room with complaints of worsening shortness of breath, cough with expectoration. Her symptoms began 2 weeks ago but worsened 3 days prior to admission. Admitted with: 1) Left-sided community-acquired pneumonia 2) Sepsis secondary to pneumonia; improved, still leukocytosis. 3) Diabetes mellitus type 2 uncontrolled: recommend tight glycemic control 4) Hypertension Recs: Continue IV ceftriaxone and azithromycin, D2 f/u sputum culture [facility] M: [phone] O:[phone] Subjective Date of service: 06/14/18 Interval history: Patient seen and examined. Sitting up in the bed, denies SOB, Generalized pain or rashes. No fevers. Objective - Exam Narrative Exam: Constitutional: Alert, cooperative. No acute distress Head, Ears, Nose: Normocephalic, atraumatic. External ears, nose normal Eyes: Conjunctivae/corneas clear. No icterus. No ptosis. Neck: Supple, no meningeal signs Oral: dentition fair, no thrush Cardiovascular: S1, S2 normal. Respiratory: Good air entry, clear to auscultation bilaterally, faint left sided basal crackles GI: Soft, non-tender; bowel sounds normal. No peritoneal signs Musculoskeletal: No pedal edema, no cyanosis. Skin: No rash or abscess Hem/Lymphatic: No palpable cervical or supraclavicular nodes. No lymphangitis Psych: Mood ok. Affect normal Neurological: Awake, alert, oriented. No gross abnormality - Constitutional Vitals: Vital Signs Temp Pulse Resp BP Pulse Ox 97.8 F 86 18 114/68 93 06/14/18 05:35 06/14/18 05:40 06/14/18 05:40 06/14/18 05:35 06/14/18 05:35 Temperature -Last 24 Hours Temperature 97.8 F Temperature 97.8 F Temperature 97.7 F Temperature 97.8 F Temperature 98.1 F - Labs CBC & Chem 7: 06/14/18 05:28 06/14/18 05:28 Labs: Abnormal lab results 06/13/18 06/13/18 06/13/18 Range/Units 11:44 17:10 21:17 WBC (4.5-11.0) K/mm3 RDW (13.2-15.2) % Seg Neutrophils # (1.8-7.7) K/mm3 BUN (7-17) mg/dL Creatinine (0.7-1.2) mg/dL Glucose (65-100) mg/dL POC Glucose 399 H 256 H 284 H (70-105) Calcium (8.4-10.2) mg/dL 06/14/18 06/14/18 06/14/18 Range/Units 05:28 05:28 08:24 WBC 13.3 H (4.5-11.0) K/mm3 RDW 12.8 L (13.2-15.2) % Seg Neutrophils # 9.1 H (1.8-7.7) K/mm3 BUN 6 L (7-17) mg/dL Creatinine 0.5 L (0.7-1.2) mg/dL Glucose 205 H (65-100) mg/dL POC Glucose 179 H (70-105) Calcium 8.3 L (8.4-10.2) mg/dL
[2018-06-14] MEDS: LANTUS SUB-Q SCH (10:27)
[2018-06-14] MEDS: ROCEPHIN/NS 2 GM/100 ML 2 GM/100 ML BAG IV SCH (10:27)
[2018-06-14] MEDS: LOVENOX SUB-Q SCH (10:28)
[2018-06-14] MEDS: ZITHROMAX PO SCH (10:29)
[2018-06-14] MEDS: PEPCID PO SCH ×2 (10:29→21:38)
[2018-06-14] MEDS ORDERED: PROVENTIL IH PRN (12:02)
[2018-06-14] MEDS: DUONEB *Not for PRN Use IH SCH ×2 (14:19→19:29)
[2018-06-14] MEDS: KCL 10MEQ/100ML 10 MEQ/100 ML BAG IV SCH (21:04)
[2018-06-15] MEDS: HumaLOG SUB-Q SCH ×3 (00:26→12:41)
[2018-06-15] MEDS: DUONEB *Not for PRN Use IH SCH ×3 (02:32→13:53)
[2018-06-15] MEDS: ROCEPHIN/NS 2 GM/100 ML 2 GM/100 ML BAG IV SCH (09:44)
[2018-06-15] MEDS: ZITHROMAX PO SCH (09:44)
[2018-06-15] MEDS: PEPCID PO SCH (09:44)
[2018-06-15] MEDS: SODIUM CHLORIDE FLUSH SYRINGE 10 ML IV SCH (09:46)
[2018-06-15] MEDS: LOVENOX SUB-Q SCH (09:48)
--- NOTE | 2018-06-15 10:12 | Progress Note ---
Assessment and Plan Cultures: 06/12/2018 blood culture: In progress 06/13/2018 influenza rapid: Negative 06/13/2018 Urine:negative 06/14/2018 Sputum: in progress 06/14/2018 Influenza PCR: negative A/P: 37-year-old female with history of asthma and diabetes mellitus type 2 presented to the emergency room with complaints of worsening shortness of breath, cough with expectoration. Her symptoms began 2 weeks ago but worsened 3 days prior to admission. Admitted with: 1) Left-sided community-acquired pneumonia 2) Sepsis secondary to pneumonia; leukocytosis resolved. 3) Diabetes mellitus type 2 uncontrolled: recommend tight glycemic control 4) Hypertension Recs: Continue IV ceftriaxone and azithromycin, D3 Clinically improved, Anticipate discharge on Ceftin 500mg BID for 5 days ID is signing off [facility] M: [id number] O:[phone] Subjective Date of service: 06/15/18 Interval history: Patient seen and examined. Sitting up in the bed, denies SOB, Generalized pain or rashes. No fevers. Objective - Exam Narrative Exam: Constitutional: Alert, cooperative. No acute distress Head, Ears, Nose: Normocephalic, atraumatic. External ears, nose normal Eyes: Conjunctivae/corneas clear. No icterus. No ptosis. Neck: Supple, no meningeal signs Oral: dentition fair, no thrush Cardiovascular: S1, S2 normal. Respiratory: Good air entry, clear to auscultation bilaterally, faint left sided basal crackles GI: Soft, non-tender; bowel sounds normal. No peritoneal signs Musculoskeletal: No pedal edema, no cyanosis. Skin: No rash or abscess Hem/Lymphatic: No palpable cervical or supraclavicular nodes. No lymphangitis Psych: Mood ok. Affect normal Neurological: Awake, alert, oriented. No gross abnormality - Constitutional Vitals: Vital Signs Temp Pulse Resp BP Pulse Ox 98.0 F 95 H 18 97/59 96 06/15/18 05:30 06/15/18 09:56 06/15/18 09:56 06/15/18 05:30 06/15/18 05:30 Temperature -Last 24 Hours Temperature 98.0 F Temperature 98.0 F Temperature 98.4 F Temperature 97.9 F Temperature 97.9 F - Labs CBC & Chem 7: 06/15/18 10:05 06/14/18 05:28 Labs: Abnormal lab results 06/14/18 06/14/18 06/14/18 Range/Units 11:58 16:49 21:31 POC Glucose 348 H 237 H 191 H (70-105) 06/15/18 Range/Units 08:08 POC Glucose 119 H (70-105)
[2018-06-15 10:17] LABS: Hemoglobin 11.3 gm/dl (10.1-14.3); Mean Corpuscular HGB Conc 33 % (30-34); Mean Corpuscular Volume 88 fl (79-97); Platelet Count 268 K/mm3 (140-440); Red Blood Count 3.87 M/mm3 (3.65-5.03); Red Cell Distribution Width 12.5 % (13.2-15.2)
--- NOTE | 2018-06-15 13:30 | Discharge Summary ---
Providers - Providers Date of Admission: 06/13/18 01:53 Date of discharge: 06/15/18 Attending physician: JAYME BONILLA 06/13/18 03:18 Consult to Physician [CONS] Routine Comment: Consulting Provider: JAMAL DELUNA Physician Instructions: Reason For Exam: severe sepsis Primary care physician: CLARIBEL CARPENTER Hospitalization Condition: Fair Hospital course: Patient is a 37 yo with history of asthma, diabetes mellitus type 2. She presented to ED with shortness of breath. She has associated chills without fever, pleuritic chest pain, palpitation, cough productive of yellowish sputum, headaches, nausea without vomiting and lightheadedness. She was seen , evaluated and admitted. Chest X ray revealed RLL pneumonia. She was also diagnosed with sepsis due to pneumonia. She was put on Recephin, Azithromycin. ID Physician consulted. She improved, shortness of breath and cough subsided and she was discharged home on 06/15/18 to manage as outpatient. Total time sent on discharge, 32 mins Disposition: TO HOME OR SELFCARE - Discharge Diagnoses (1) Sepsis Status: Acute (2) Pneumonia Status: Acute (3) Asthma Status: Acute (4) Obesity (BMI 30.0-34.9) Status: Acute (5) Diabetes mellitus type 2 in obese Status: Acute Core Measure Documentation - Palliative Care Palliative Care/ Comfort Measures: Not Applicable - Core Measures Any of the following diagnoses?: none Exam - Physical Exam Narrative exam: Gen: Not in acute distress, lying in bed, obese HEENT: Normocephalic, atraumatic Heart: S1 and S2 reg, no murmurs, rubs or gallop Lungs: Clear to auscultation bilaterally, no wheezing Abd: soft, non tender, non distended, normal BS Ext: No edema, no clubbing, no cyanosis Neuro: AAO x 3, no focal signs, moves all ext Psych:Normal mood - Constitutional Vitals: Temp Pulse Resp BP Pulse Ox 98.6 F 87 18 122/85 97 06/15/18 12:02 06/15/18 12:02 06/15/18 12:02 06/15/18 12:02 06/15/18 12:02 Plan Activity: no restrictions Diet: low fat, low cholesterol, low salt Additional Instructions: 1.Follow up with PCP or [facility] in 1 week. Forms: Work/School Release Form Prescriptions: cefUROXime [Ceftin] 500 mg PO Q12H 5 Days tablet
[2018-06-15 14:53] VITALS: BP 117/72
== END 2018-06-15 15:21 | disposition home or self-care (01) | DRG 871 ==
LOC: ED 22:00 → 3A 06-13 01:53
PROVIDERS: ADMIT Internal Medicine; ATTEND Internal Medicine
DX: A41.9 Sepsis, unspecified organism (principal); J18.9 Pneumonia, unspecified organism; E87.6 Hypokalemia; E11.65 Type 2 diabetes mellitus with hyperglycemia; I10 Essential (primary) hypertension; R65.20 Severe sepsis without septic shock; E83.42 Hypomagnesemia; E66.9 Obesity, unspecified; Z68.32 Body mass index [BMI] 32.0-32.9, adult; Z71.3 Dietary counseling and surveillance; Z98.51 Tubal ligation status; Z87.891 Personal history of nicotine dependence; Z79.899 Other long term (current) drug therapy; Z72.89 Other problems related to lifestyle
CPT/HCPCS: 36415; 71045; 71046; 80048; 80053; 81001; 82140; 82550; 82805; 82962; 83036; 83735; 85025; 85027; 85610; 87040; 87070; 87086; 87205; 87400; 87430; 93005; 93010; 94640; G0378; 87502; J0696; J1650; J1815; J1885; J2543; J2930; J3370; J3475; J3480; J7030; J7040